=== PATIENT | male | born 1975 ===

== ENCOUNTER 2016-12-01 19:52 | Emergency (ER) | payer OTHER ==
[2016-12-01 20:12] VITALS: BP 151/69
--- NOTE | 2016-12-10 12:05 | UC ---
Abdominal Pain Male HPI - HPI Summary HPI Summary: pt p/w c/o rlq pain that started at 3pm associated with fever and shaking chills. pt notices some cramping in lower abd when he voided. - History of Current Complaint Chief Complaint: UCAbdominalPain Stated Complaint: ABDOMINAL PAIN,SHAKING Time Seen by Provider: 12/01/16 21:49 Hx Obtained From: Patient, Family/Marine Service Manager Onset/Duration: Sudden Onset, Still Present, Worse Since - progressively Timing: Constant Pain Intensity: 4 Pain Scale Used: 0-10 Numeric Location: Discrete At: RLQ Radiates: No Character: Aching, Sharp Aggravating Factor(s):: Movement Alleviating Factor(s): Nothing Associated Signs And Symptoms: Positive: Diaphoresis, Fever, Urinary Symptoms - noticed lower abd craming when he voided. Negative: Cough, Chest Pain, Dizzy, Back Pain, Constipation, Blood in Stool, Nausea, Vomiting, Diarrhea, Penile Discharge - Allergies/Home Medications Allergies/Adverse Reactions: Allergies Allergy/AdvReac Type Severity Reaction Status Date / Time No Known Allergies Allergy Verified 12/01/16 20:12 Home Medications: Home Medications Ibuprofen TAB* [Advil TAB*] 200 mg PO Q6H PRN 12/01/16 [History Confirmed ] PMH/Surg Hx/FS Hx/Imm Hx Previously Healthy: Yes - Surgical History Surgical History: Yes Surgery Procedure, Year, and Place: right knee - Family History Known Family History: Negative: Cardiac Disease, Hypertension, Diabetes - Social History Occupation: Employed Full-time Lives: With Family Alcohol Use: Weekly Substance Use Type: None Smoking Status (MU): Never Smoked Tobacco Review of Systems Constitutional: Fever, Chills Skin: Negative Eyes: Negative ENT: Negative Respiratory: Negative Cardiovascular: Negative Gastrointestinal: Abdominal Pain Genitourinary: Other - noticed lower abd crampig when he voided Motor: Negative Neurovascular: Negative Musculoskeletal: Negative Neurological: Negative Psychological: Negative All Other Systems Reviewed And Are Negative: Yes Physical Exam Triage Information Reviewed: Yes Appearance: Well-Appearing, Well-Nourished, Pain Distress - mild to mod Vital Signs: Initial Vital Signs Temp 100.5 F 12/01/16 20:08 Pulse 118 12/01/16 20:08 Resp 16 12/01/16 20:08 BP 151/69 12/01/16 20:08 Pulse Ox 97 12/01/16 20:08 Vital Signs Reviewed: Yes Eyes: Positive: Conjunctiva Clear. Negative: Discharge ENT: Positive: Hearing grossly normal. Negative: Muffled/hoarse voice Neck: Positive: Supple Respiratory: Positive: Lungs clear, Normal breath sounds, No respiratory distress, No accessory muscle use Cardiovascular: Positive: RRR, No Murmur Abdomen Description: Positive: Soft, Guarding, McBurney's Point Tenderness. Negative: Nontender - rlq tenderness, CVA Tenderness (R), CVA Tenderness (L), Distended, Peritoneal Signs Bowel Sounds: Positive: Present Musculoskeletal Exam: Normal Neurological: Positive: Alert, Muscle Tone Normal Psychological: Positive: Age Appropriate Behavior Skin Exam: Normal Abd Pain Male Course/Dx - Differential Dx/Clinical Impression Differential Diagnosis/HQI/PQRI: Appendicitis, Diverticulitis, Ureteral Stone, Urinary Tract Infection Provider Diagnoses: abd pain unknown wilmer - r/o appy Discharge - Discharge Plan Condition: Stable Disposition: AGAINST MEDICAL ADVICE Referrals: Irma Moseley MD [Primary Care Provider] -
== END 2016-12-01 22:25 | disposition left against medical advice (07) ==
LOC: UCCORT 19:52
DX: R10.31 Right lower quadrant pain (principal); R50.9 Fever, unspecified
CPT/HCPCS: 81003; 99212; G0463